=== PATIENT | female | born 1970 | race Hispanic/Latino ===

== ENCOUNTER 2018-04-27 17:16 | Emergency (ER) | payer SELFPAY ==
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
[2018-04-27 18:38] LABS: HCG Qualitative,Urine Negative (Negative)
[2018-04-27 18:42] LABS: Bilirubin,Urine NEG (Negative); Blood,Urine MOD (Negative); Color,Urine Yellow (Yellow); Mucus,Urine FEW /HPF; Urobilinogen,Urine < 2.0 mg/dL (<2.0)
[2018-04-27] MEDS ORDERED: ZITHROMAX PO ONE (20:33)
[2018-04-27] MEDS ORDERED: BOOSTRIX IM ONE (20:33)
[2018-04-27] MEDS ORDERED: ROCEPHIN IM ONE (20:33)
[2018-04-27] MEDS ORDERED: FLAGYL PO ONE (20:33)
[2018-04-27] MEDS ORDERED: ATIVAN IM PRN (20:38)
[2018-04-27] MEDS ORDERED: HALDOL IM PRN (20:38)
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
[2018-04-27 21:21] LABS: Basophils % (Auto) 0.4 % (0.0-1.8); Eosinophils # (Auto) 0.1 K/mm3 (0.0-0.4); Eosinophils % (Auto) 1.3 % (0.0-4.3); Hematocrit 33.7 % (30.3-42.9); Hemoglobin 10.9 gm/dl (10.1-14.3); Lymphocytes % (Auto) 18.8 % (13.4-35.0); Mean Corpuscular HGB Conc 32 % (30-34); Mean Corpuscular Volume 78 fl (79-97); Monocytes # (Auto) 1.1 K/mm3 (0.0-0.8); Monocytes % (Auto) 10.2 % (0.0-7.3); Platelet Count 186 K/mm3 (140-440); Red Blood Count 4.32 M/mm3 (3.65-5.03); Red Cell Distribution Width 16.5 % (13.2-15.2)
[2018-04-27 21:22] LABS: Mean Corpuscular Hemoglobin 25 pg (28-32)
[2018-04-27 21:40] LABS: Alanine Aminotransferase 17 units/L (7-56); Albumin 4.6 g/dL (3.9-5); BUN/Creatinine Ratio 34; Blood Urea Nitrogen 37 mg/dL (7-17); Calcium 10.1 mg/dL (8.4-10.2); Hemolysis Index 2
[2018-04-27 21:42] LABS: Bilirubin,Direct < 0.2 mg/dL (0-0.2)
[2018-04-27] MEDS ORDERED: XYLOCAINE 1% 20 mL INFILTRATI ONE (21:44)
[2018-04-27 22:22] LABS: Benzodiazepines Screen,Urine PRESUMPTIVE NEGATIVE; Cocaine Screen,Urine PRESUMPTIVE NEGATIVE; Methadone Screen,Urine PRESUMPTIVE NEGATIVE; Opiate Screen,Urine PRESUMPTIVE NEGATIVE
[2018-04-27 22:34] LABS: Amphetamine Screen,Urine PRESUMPTIVE POSITIVE; Cannabinoid Screen,Urine PRESUMPTIVE POSITIVE
[2018-04-27] MEDS ORDERED: K-DUR PO ONE (23:14)
[2018-04-27] MEDS ORDERED: MAG-OX PO STA (23:14)
[2018-04-27] MEDS ORDERED: TYLENOL PO PRN (23:18)
[2018-04-27] MEDS: ISENTRESS PO SCH (23:45)
[2018-04-28] MEDS ORDERED: ZOFRAN ODT PO PRN (04:14)
[2018-04-28] MEDS ORDERED: VIREAD PO SCH (10:00)
[2018-04-28] MEDS ORDERED: EMTRIVA 200 MG, VIREAD 300 MG PO SCH (10:00)
[2018-04-28] MEDS ORDERED: EMTRIVA PO SCH (10:00)
[2018-04-28] MEDS: ISENTRESS PO SCH ×2 (10:39→22:26)
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
[2018-04-29 04:11] VITALS: BP 157/79
[2018-04-29] MEDS ORDERED: TRILEPTAL PO SCH (10:00)
== END 2018-04-29 04:11 ==
LOC: ED 17:16 → EEVIPCON 17:16 → ED 04-29 04:11
DX: Z04.6 Encounter for general psychiatric examination, requested by authority (principal); F31.9 Bipolar disorder, unspecified; F41.9 Anxiety disorder, unspecified; G89.29 Other chronic pain; Z87.891 Personal history of nicotine dependence; Z90.89 Acquired absence of other organs
CPT/HCPCS: 36415; 80048; 80074; 80307; 81001; 81025; 82550; 82962; 85025; 86592; 86706; 87806; 90471; 90715; 96372; 99285; G0480; J0696; 80320; J1630; J2060; Q0162

== ENCOUNTER 2019-12-24 17:24 | Emergency (ER) | payer MEDICAID, SELFPAY ==
[2019-12-24] MEDS ORDERED: TETRACAINE 0.5% OPHTH SOLN 4ML ONE (17:50)
[2019-12-24] MEDS ORDERED: FLUORESCEIN 1 MG STRIP OP ONE (17:50)
[2019-12-24] MEDS ORDERED: BALANCED SALT IRRIG (BSS) OPHTH SOLN 15 ML ONE (17:50)
[2019-12-24] MEDS: TETRACAINE 0.5% OPHTH SOLN 4ML OU STA (17:53)
[2019-12-24] MEDS: FLUORESCEIN 1 MG STRIP OP ONE (17:53)
[2019-12-24] MEDS ORDERED: SODIUM CHLORIDE 0.9% 1000 ML 2,000 ML ONE (17:58)
[2019-12-24 22:30] VITALS: BP 164/101
[2019-12-24] MEDS: HYDROcodone/ACETAMINOPHEN 5-325 MG TAB PO ONE (22:37)
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
== END 2019-12-24 23:45 | disposition home or self-care (01) ==
LOC: ED 17:24
DX: H57.13 Ocular pain, bilateral (principal); Z77.098 Contact with and (suspected) exposure to other hazardous, chiefly nonmedicinal, chemicals; F41.9 Anxiety disorder, unspecified; F31.9 Bipolar disorder, unspecified; F12.10 Cannabis abuse, uncomplicated; Z98.890 Other specified postprocedural states; Z79.899 Other long term (current) drug therapy
CPT/HCPCS: 99283; J7030

== ENCOUNTER 2021-03-01 15:04 | Emergency (ER) | payer SELFPAY ==
[2021-03-01 15:11] VITALS: BP 158/94
--- NOTE | 2021-03-01 15:31 | Emergency Department Report ---
Chief Complaint: Extremity Problem,Nontraumatic Stated Complaint: LT FOOT PAINS Time Seen by Provider: 03/01/21 15:15 - HPI History of Present Illness: 50-year-old female patient presents with complaints of left foot pain for the past 6 months. She denies any injury, numbness/tingling/weakness in her foot, skin changes, swelling, or difficulty moving her foot. No fever/chills/sweats per patient. Patient also denies any past medical history including immunosuppressive diseases. She rates her pain as a 4/10 in severity and states it worsens with walking. - Exam Vital Signs: Vital Signs 03/01/21 15:09 Temperature 98.2 F Pulse Rate 94 H Respiratory 20 Rate Blood Pressure 158/94 [Right] O2 Sat by Pulse 98 Oximetry MSE screening note: Focused history and physical exam performed. Due to findings the following was ordered: ED Medical Decision Making - Medical Decision Making Patient offered x-ray of the foot and declines. She states she would just prefer a referral to a silk opener. Referral provided. Discussed signs and symptoms that should prompt immediate return to the emergency department in detail patient verbalizes understanding. She is otherwise well-appearing, her vitals are WNL, and she is stable for discharge home. ED Disposition for [facility] [place] Clinical Impression: Chronic toe pain, left foot Disposition: Z-07 MED SCREENING EXAM-LEFT Condition: Stable Instructions: Pain Without a Known Cause Referrals: KYLER MARES DPM [Staff Physician] - 3-5 Days Forms: AMA Form ED Physical Exam - General Limitations: No Limitations General appearance: alert, in no apparent distress, obese - Head Head exam: Present: atraumatic, normocephalic - Eye Eye exam: Present: normal appearance - Respiratory Respiratory exam: Absent: respiratory distress - Cardiovascular Cardiovascular Exam: Present: regular rate - Extremities Exam Extremities exam: Present: full ROM - Expanded Lower Extremity Exam Left Foot/Toe exam: Present: full ROM, tenderness (Tenderness to palpation noted to a ll 5 metatarsophalangeal joints without bruising, swelling, erythema, or crepitus noted). Absent: swelling, abrasion, laceration, ecchymosis, deformity, crepidus, dislocation, erythema, puncture wound, calcaneal tenderness Neuro vascular tendon exam: Absent: no vascular compromise, pulse deficit (Pedal pulses normal), abnormal cap refill, sensory deficit - Neurological Exam Neurological exam: Present: alert, oriented X3, normal gait - Psychiatric Psychiatric exam: Present: normal affect, normal mood - Skin Skin exam: Present: warm, dry, intact, normal color. Absent: rash, cyanosis, ecchymosis ED Review of Systems ROS: Stated complaint: LT FOOT PAINS Other details as noted in HPI Constitutional: denies: chills, diaphoresis, fever, malaise, weakness Endocrine: denies: excessive sweating Musculoskeletal: arthralgia. denies: joint swelling Skin: denies: rash, change in color Neurological: denies: weakness, numbness, paresthesias, abnormal gait Hematological/Lymphatic: denies: swollen glands
== END 2021-03-01 15:36 | disposition left against medical advice (07) ==
LOC: ED 15:04
DX: M79.672 Pain in left foot (principal); Z53.21 Procedure and treatment not carried out due to patient leaving prior to being seen by health care provider